=== PATIENT | female | born 1950 | race Asian ===

== ENCOUNTER 2022-02-02 02:21 | Inpatient (IN) | payer MEDICARE, OTHER ==
[~2022-02-02] VITALS: Ht 157.5 cm; Wt 46.7 kg
--- NOTE | 2022-02-02 03:45 | NUR ---
WELLNESS DIRECTOR NOTE ADMIT 71 YEAR OLD DANIEL FEMALE FROM [facility] ON TELE MONITORING WITH ADMITTING DIAGNOSIS COVID POSITIVE AND ON IMMUNE SUPPRESSED PERSON,HYPONATREMIA.ALERT ORIENTED X4 VERBALLY RESPONSIVE ON ROOM AIR O2:97% AMBULATORY CONTINET TO BOWEL/BLADDER,IV SITE IS ON RIGHT WRIST INTACT PATENT,SKIN IS INTACT EXCEPT LEFT FOREARM OLD AV SHUNT.SAFETY MEASURE IMPLEMENT BED IN LOW POSITION AND LOCKED,CALL LIGHT WITHIN REACH CONTINUE TO MONITOR.
[2022-02-02 04:00] VITALS: BP 169/90
[2022-02-02] MEDS ORDERED: CEFTRIAXONE 1 G in IV D5W 50 ML IV SCH (04:30)
[2022-02-02] MEDS ORDERED: METOCLOPRAMIDE HCL 10 MG/2 ML VIAL IV PRN (04:30)
[2022-02-02] MEDS ORDERED: hydrALAZINE HCL IV 20 MG VIAL IV PRN (04:30)
[2022-02-02] MEDS ORDERED: ONDANSETRON HCL/PF 4 MG/2 ML VIAL IVP PRN (04:30)
[2022-02-02] MEDS: IV NS 0.9% 1,000 ML IV PRN (04:59)
[2022-02-02] MEDS ORDERED: CEFTRIAXONE 1 G VIAL ONE (05:18)
[2022-02-02 06:39] LABS: CALCIUM, SERUM 9.1 mg/dL (8.5-10.1); CARBON DIOXIDE 28 mmol/L (21-32); CHLORIDE 94 mmol/L (98-107); CREATININE 1.3 mg/dL (0.6-1.3); GLUCOSE 114 mg/dL (74-106); POTASSIUM 3.6 mmol/L (3.5-5.1); SODIUM SERUM 131 mmol/L (136-145); UREA NITROGEN, BLOOD 22 mg/dL (7-18)
[2022-02-02 06:44] LABS: ALANINE AMINOTRANSFERASE 18 U/L (12-78); ALBUMIN 3.4 g/dL (3.4-5.0); ALKALINE PHOSPHATASE 62 U/L (46-116); ASPARTATE AMINOTRANSFERASE 16 U/L (15-37); BILIRUBIN,DIRECT 0.1 mg/dL (0.0-0.2); BILIRUBIN,TOTAL 0.4 mg/dL (0.2-1.0); MAGNESIUM 1.6 mg/dL (1.8-2.4); PHOSPHORUS 2.9 mg/dL (2.5-4.9); TOTAL PROTEIN, SERUM 6.8 g/dL (6.4-8.2)
[2022-02-02 06:50] LABS: CHOLESTEROL 143 mg/dL (<200); HDL CHOLESTEROL 61 mg/dL (40-60); LDL 71 mg/dL (0-99); THYROID STIMULATING HORMONE 2.457 uIU/mL (0.358-3.74); TRIGLYCERIDES 84 mg/dL (30-150)
[2022-02-02 07:18] LABS: CREATINE KINASE, TOTAL 67 U/L (26-192)
[2022-02-02 07:19] LABS: BASOPHILS % (AUTO) 0.3 % (0.0-2.0); EOSINOPHILS % (AUTO) 0.2 % (0.0-6.0); HEMATOCRIT 33 % (33-45); HEMOGLOBIN 10.9 g/dL (11.5-14.8); LYMPHOCYTES # (AUTO) 0.6 K/uL (0.8-4.8); LYMPHOCYTES % (AUTO) 6.9 % (20.0-44.0); MEAN CORPUSCULAR HGB CONC 34 g/dl (31.0-36.0); MEAN CORPUSCULAR VOLUME 97 fL (82-100); MONOCYTES # (AUTO) 0.6 K/uL (0.1-1.30); MONOCYTES % (AUTO) 7.2 % (2.0-12.0); NEUTROPHILS # (AUTO) 7.1 K/uL (1.8-8.9); NEUTROPHILS % (AUTO) 85.4 % (43.0-81.0); PLATELET COUNT (AUTO) 284 K/uL (150-450); RED BLOOD CELL COUNT(AUTO) 3.36 MIL/uL (4.0-5.2); WHITE BLOOD COUNT (AUTO) 8.4 K/uL (4.3-11.0)
[2022-02-02 07:30] LABS: C-REACTIVE PROTEIN < 0.2 mg/dL (0.0-0.9); FERRITIN 1577 ng/mL (8-388)
--- NOTE | 2022-02-02 07:39 | NUR ---
RN OPENING NOTE RECEIVED PATIENT A/OX 3, ON ROOM AIR WITH NO COMPLAINTS OF SOB OR PAINT COUGH NOTED. 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 PATIENT IS AMBULATORY BUT WAS REMINDED TO CALL FOR HELP WHEN GETTING UP FOR THE FIRST TIME THIS MORNING. ON CARDIAC DIET WITH RIGHT WRIST IV NOTED RUNNING NS AT 50CC/HR WITH NO SIGNS OF INFILTRATION. PATIENT IS ON AIR BORN PRECAUTION DUE TO COVID POSITIVE DIAGNOSIS. SAFETY MEASURES IN PLACE, CALL LIGHT WITHIN REACH, BED LOCKED IN THE LOWEST POSITION, BED ALARM ACTIVATED.
[2022-02-02 08:00] VITALS: BP 127/57
[2022-02-02] MEDS ORDERED: PANT40TA49 PO (09:36)
[2022-02-02] MEDS ORDERED: TRAZ-182 PO (09:36)
[2022-02-02] MEDS ORDERED: EPOE200011 SQ (09:36)
[2022-02-02] MEDS ORDERED: TACR1CAP2 PO (09:36)
[2022-02-02] MEDS ORDERED: DILT180C92 PO (09:36)
[2022-02-02] MEDS ORDERED: PRAV40TA3 PO (09:36)
[2022-02-02] MEDS ORDERED: CLON0.1T PO (09:36)
[2022-02-02] MEDS ORDERED: CALC0.253 PO (09:36)
[2022-02-02] MEDS ORDERED: CINA90TA4 PO (09:36)
[2022-02-02] MEDS ORDERED: MONT10TA22 PO (09:36)
[2022-02-02] MEDS ORDERED: CLON1PAT13 TP (09:36)
[2022-02-02] MEDS ORDERED: FOLI0.8T2 PO (09:36)
[2022-02-02] MEDS ORDERED: METH5TAB6 PO (09:36)
[2022-02-02] MEDS ORDERED: ASPI-1420 PO (09:36)
[2022-02-02] MEDS ORDERED: LINA145C PO (09:36)
[2022-02-02] MEDS ORDERED: FLUT1BLS INH (09:36)
[2022-02-02] MEDS ORDERED: CARV25TA2 PO (09:36)
[2022-02-02] MEDS ORDERED: PRED2.5T PO (09:36)
[2022-02-02] MEDS ORDERED: MYCO250C PO (09:37)
[2022-02-02] MEDS: ENOXAPARIN SODIUM 40 MG/0.4 ML DISP.SYRIN SQ SCH (10:26)
[2022-02-02] MEDS ORDERED: MYCO180T PO (10:29)
[2022-02-02] MEDS ORDERED: MAGNESIUM OXIDE 400 MG TABLET PO ONE (11:30)
[2022-02-02 12:00] VITALS: BP 151/80
--- NOTE | 2022-02-02 12:15 | NUR ---
DIE TRIMMER/MED RECON HOME MEDICATION INFORMATION UPDATED. INFO OBTAINED FROM THE PATIENT AND ( PER PATIENT REQUESTED) OFFICE OF DR. LEISA RODRÍGUEZ MD (CLAIMS CUSTOMER SERVICE REPRESENTATIVE [phone]). CN AWARE. COMMUNICATED WITH PHARMACY. SPOKE WITH SHANTAL-SON [phone] RE: MYFORTIC AND TO BRING HOME MEDICATION SUPPLY (NON-FORMULARY). SON WILL UPDATE LATER.
[2022-02-02] MEDS ORDERED: CLONIDINE HCL 0.1 MG TABLET PO PRN (15:00)
[2022-02-02] MEDS: METHIMAZOLE (5MG) 5 MG TABLET PO SCH (15:55)
[2022-02-02 16:00] VITALS: BP 170/86
--- NOTE | 2022-02-02 16:00 | NUR ---
RN NOTE PATIENTS BLOOD PRESSURE NOTED TO BE ELVEATED HOME MEDICATION WILL BE RESUMED
[2022-02-02] MEDS ORDERED: TACROLIMUS ANHYDROUS 1 MG CAPSULE PO SCH (17:00)
[2022-02-02] MEDS ORDERED: MYCOPHENOLATE SODIUM 180 MG TABLET.DR PO SCH (17:00)
[2022-02-02] MEDS: ATORVASTATIN 10 MG TABLET PO SCH (17:04)
[2022-02-02] MEDS: CARVEDILOL 12.5 MG TABLET PO SCH (17:04)
[2022-02-02] MEDS: [UNRECOGNIZED DRUG - OTHER] PO SCH (17:04)
[2022-02-02] MEDS: CALCITRIOL 0.25 MCG CAPSULE PO SCH (17:04)
[2022-02-02] MEDS: MYFORTIC PO SCH (17:04)
[2022-02-02] MEDS: TACROLIMUS PO SCH (17:04)
[2022-02-02] MEDS: MONTELUKAST SODIUM (10MG) 10 MG TABLET PO SCH (17:04)
[2022-02-02] MEDS: MYCOPHENOLIC PO SCH (17:04)
--- NOTE | 2022-02-02 18:53 | NUR ---
RN CLOSING NOTE PATIENT REMAINS ALERT ORIENTED X4 VERBALLY RESPONSIVE ON ROOM AIR O2:97% NO SOB NOT ACUTE DISTRESS NOTED,PATIENT IS ON NS IV HYDRATION 50CC/HR IV SITE IS ON RIGHT WRIST INTACT PATENT,SAFETY MEASURE IMPLEMENT BED IN LOW POSITION AND LOCKED,CALL LIGHT WITHIN REACH ENDORSE NEXT COMING SHIFT FOR CONTINUATION OF CARE.
[2022-02-02 20:00] VITALS: BP 143/67
--- NOTE | 2022-02-02 20:00 | NUR ---
TELEPHONIC NURSE CASE MANAGER NOTE PT IN BED ASLEEP, AROUSABLE. A/O X 4,. NO SOB, NO DISTRESS OR DISCOMFORT NOTED. DENIES PAIN. ON TELE SR HR 82. IVF NS @50 ML/HR INFUSING WELL, NO S/S OF INFILTRATION NOTED. PT IS AMBULATORY WITH STEADY GAIT. SIDE RIALS UP X 2 AND CALL LIGHT WITHIN REACH. VSS. CONTINUE TO MONITOR HER.
[2022-02-02] MEDS: ACETAMINOPHEN 325 MG TABLET PO PRN (21:32)
[2022-02-02] MEDS: TRAZODONE 50 MG TABLET PO SCH (21:32)
--- NOTE | 2022-02-02 23:05 | NUR ---
TRESTLE MECHANIC NOTE REPORT GIVEN TO JAMESON JOHNS FOR CONTINUE TO CARE FOR THE PT.
[2022-02-03] VITALS: BP 143/78
[2022-02-03 04:00] VITALS: BP 139/88
[2022-02-03] MEDS ORDERED: AZITHROMYCIN 250 MG TABLET PO SCH (04:30)
[2022-02-03] MEDS ORDERED: CEFTRIAXONE 1 G in IV D5W 50 ML IV SCH (05:00)
[2022-02-03 06:25] LABS: BASOPHILS % (AUTO) 0.3 % (0.0-2.0); EOSINOPHILS % (AUTO) 0.3 % (0.0-6.0); HEMATOCRIT 32 % (33-45); HEMOGLOBIN 10.7 g/dL (11.5-14.8); LYMPHOCYTES # (AUTO) 0.3 K/uL (0.8-4.8); LYMPHOCYTES % (AUTO) 5.4 % (20.0-44.0); MEAN CORPUSCULAR HGB CONC 33 g/dl (31.0-36.0); MEAN CORPUSCULAR VOLUME 98 fL (82-100); MONOCYTES # (AUTO) 1.1 K/uL (0.1-1.30); MONOCYTES % (AUTO) 16.5 % (2.0-12.0); NEUTROPHILS % (AUTO) 77.5 % (43.0-81.0); PLATELET COUNT (AUTO) 224 K/uL (150-450); WHITE BLOOD COUNT (AUTO) 6.4 K/uL (4.3-11.0)
--- NOTE | 2022-02-03 06:44 | NUR ---
RN CLOSING NOTES: PT IN BED AWAKE, A/O X 4 AND VERBALLY RESPONSIVE. BREATHING EVEN AND UNLABORED. IV ACCESS ON RT WRIST INTACT AND PATENT. NO S/S OF INFILTRATIONS. RUNNING NS@50CC/HR. NO C/O PAIN OR DISCOMFORT. NO ACUTE DISTRESS. PT IS AMBULATORY WITH STEADY GAIT. ALL DUE MEDS GIVEN PER ORDERED. ALL SAFETY MEASURES IN PLACE. SIDE RIALS UP X 2, BED IN LOWEST POSITION AND LOCKED. PLACE CALL LIGHT WITHIN REACH. WILL ENDORSE TO MORNING SHIFT NURSE.
[2022-02-03 06:50] LABS: CALCIUM, SERUM 8.9 mg/dL (8.5-10.1); CARBON DIOXIDE 26 mmol/L (21-32); CHLORIDE 99 mmol/L (98-107); CREATININE 1.1 mg/dL (0.6-1.3); GLUCOSE 109 mg/dL (74-106); MAGNESIUM 1.7 mg/dL (1.8-2.4); PHOSPHORUS 2.9 mg/dL (2.5-4.9); POTASSIUM 3.7 mmol/L (3.5-5.1); SODIUM SERUM 134 mmol/L (136-145); UREA NITROGEN, BLOOD 21 mg/dL (7-18)
[2022-02-03] MEDS ORDERED: PANTOPRAZOLE 40 MG TABLET.DR PO PRN (07:30)
--- NOTE | 2022-02-03 07:34 | NUR ---
RN OPENING NOTE RECEIVED PATIENT A/OX 3, ON ROOM AIR WITH NO COMPLAINTS OF SOB OR PAINT COUGH NOTED. 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 PATIENT IS AMBULATORY BUT WAS REMINDED TO CALL FOR HELP WHEN GETTING UP FOR THE FIRST TIME THIS MORNING. ON CARDIAC DIET WITH RIGHT WRIST IV NOTED RUNNING NS AT 50CC/HR WITH NO SIGNS OF INFILTRATION. PATIENT IS ON AIR BORN PRECAUTION DUE TO COVID POSITIVE DIAGNOSIS. SAFETY MEASURES IN PLACE, CALL LIGHT WITHIN REACH, BED LOCKED IN THE LOWEST POSITION, BED ALARM ACTIVATED.
[2022-02-03 08:00] VITALS: BP 167/81
[2022-02-03] MEDS: CINACALCET HCL 30 MG TABLET PO SCH (08:43)
[2022-02-03] MEDS: CALCITRIOL 0.25 MCG CAPSULE PO SCH ×2 (08:44→17:30)
[2022-02-03] MEDS: CARVEDILOL 12.5 MG TABLET PO SCH ×2 (08:44→17:31)
[2022-02-03] MEDS: ASPIRIN EC 81 MG TABLET.DR PO SCH (08:44)
[2022-02-03] MEDS: predniSONE 5 MG TABLET PO SCH (08:44)
[2022-02-03] MEDS: VIT B CMPLX 3/FA/VIT C/BIOTIN 1 TAB TABLET PO SCH (08:44)
[2022-02-03] MEDS: DILTIAZEM HCL CD 180 MG PO SCH (08:45)
[2022-02-03] MEDS: ENOXAPARIN SODIUM 40 MG/0.4 ML DISP.SYRIN SQ SCH (08:49)
[2022-02-03] MEDS: FLUTICASONE/VILANTEROL 1 EACH BLST.W.DEV IH SCH (08:50)
[2022-02-03] MEDS ORDERED: Medication Not On Formulary EA (Folic Acid/Vitamin B Comp W-C (Nephro-Vite Tablet) 0.8 M PO SCH (09:00)
[2022-02-03] MEDS ORDERED: Medication Not On Formulary EA (Linaclotide (Linzess) 145 MCG) PO SCH (09:00)
[2022-02-03] MEDS ORDERED: Medication Not On Formulary EA (Prednisone 2.5 MG) PO SCH (09:00)
[2022-02-03] MEDS ORDERED: CLONIDINE HCL 0.2MG/24H PTWK 1 EA PATCH TD SCH (09:00)
[2022-02-03] MEDS ORDERED: CINACALCET HCL 90 MG PO SCH (09:00)
[2022-02-03] MEDS: TACROLIMUS PO SCH ×2 (09:23→17:32)
[2022-02-03] MEDS: MYFORTIC PO SCH ×2 (09:23→17:32)
[2022-02-03] MEDS: [UNRECOGNIZED DRUG - OTHER] PO SCH ×2 (09:23→17:32)
[2022-02-03] MEDS: MYCOPHENOLIC PO SCH ×2 (09:23→17:32)
--- NOTE | 2022-02-03 12:00 | NUR ---
RN NOTE PATIENT NOTED TO HAVE TEMP OF 100.5, PRN TYLENOL REMOVED FROM OMNICELL. PATIENT IN BATHROOM. TYLENOL RETURNED TO OMNICELL.
[2022-02-03 12:15] VITALS: BP 126/66
[2022-02-03] MEDS ORDERED: MAGNESIUM OXIDE 400 MG TABLET PO ONE (12:30)
--- NOTE | 2022-02-03 12:30 | NUR ---
RN NOTE PATIENT BACK IN BED PRN TYLENOL GIVEN FOR A 100.4 TEMP
[2022-02-03] MEDS: ACETAMINOPHEN 325 MG TABLET PO PRN ×2 (12:48→22:05)
--- NOTE | 2022-02-03 15:00 | NUR ---
RN NOTE CONSENT SIGNED AND SENT OVER TO [facility] FOR BLOOD CULTURE RESULTS
[2022-02-03 16:00] VITALS: BP 101/51
[2022-02-03] MEDS: ATORVASTATIN 10 MG TABLET PO SCH (17:31)
[2022-02-03] MEDS: MONTELUKAST SODIUM (10MG) 10 MG TABLET PO SCH (17:31)
[2022-02-03] MEDS: IV NS 0.9% 1,000 ML IV PRN (17:34)
--- NOTE | 2022-02-03 18:44 | NUR ---
RN OPENING NOTE RECEIVED PATIENT A/OX 4, ON ROOM AIR WITH NO COMPLAINTS OF SOB OR PAINT COUGH NOTED. 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 PATIENT IS AMBULATORY. ON CARDIAC DIET WITH RIGHT WRIST IV NOTED RUNNING NS AT 50CC/HR WITH NO SIGNS OF INFILTRATION. PATIENT IS ON AIR BORN PRECAUTION DUE TO COVID POSITIVE DIAGNOSIS. SAFETY MEASURES IN PLACE, CALL LIGHT WITHIN REACH, BED LOCKED IN THE LOWEST POSITION, BED ALARM ACTIVATED. WILL ENDORSE TO NIGHT NURSE FOR BRINA.
[2022-02-03 20:00] VITALS: BP 112/62
--- NOTE | 2022-02-03 20:04 | NUR ---
TELE NR NOTE RECEIVED PT SLEEPING ON BED BUT EASILY AROUSABLE, PT IN RA NO SOB NOTED, NO DISTRESS OR DISCOMFORT, NO COMPLAINTS OF PAIN AT THIS TIME, ON TELEMONITORING CURRENTLY READING 69BPM, NOTED WITH LFA AV SHUNT, WITH R WRIST NS RUNNING @ 50 ML/HR INTACT AND PATENT, PT REMAINS COVID (+), ISOLATION PRECAUTION IN PLACE, CALL LIGHT WITHIN REACH, BED IN LOWEST AND LOCKED POSITION, WILL CONTINUE TO MONITOR.
--- NOTE | 2022-02-03 22:00 | NUR ---
RN NOTE NOTED PT WITH A LOW GRADE FEVER OF 99.8, TYLENOL 650 MG PO GIVEN ORDERED, WILL CONT TO MONITOR.
[2022-02-03] MEDS: TRAZODONE 50 MG TABLET PO SCH (22:06)
--- NOTE | 2022-02-03 23:00 | NUR ---
RN NOTE FEVER SUBSIDED TO 97.8, IVF INFUSING WELL, WILL CONT TO MONITOR.
[2022-02-04] VITALS: BP 84/41
--- NOTE | 2022-02-04 00:34 | NUR ---
RN NOTE NOTED PT BLOOD PRESSURE AT 84/41 MMHG, HR 59 BPM, PT SHOW NO DISTRESS OR DISCOMFORT. INFORMED RADHA DNP, RECEIVED NEW ORDERS TO GIVE NS 500 ML BOLUS. ORDER NOTED AND CARRIED OUT. WILL CONT TO MONITOR
[2022-02-04] MEDS ORDERED: IV NS 0.9% 500 ML IV ONE (01:00)
--- NOTE | 2022-02-04 01:09 | NUR ---
RN NOTE NOTED THAT THE IV SITE GOT OCCLUDED, UNABLE TO FLUSH, DC THE LINE AND SECURED THE SITE WITH 2X2 GAUZE, NO BLEEDING NOTED, INSERTED NEW IV LINE ON R HAND #[id number], RESUME NS 500 BOLUS FOR LOW BP ORDERED. NO S/SX OF INFILTRATION NOTED. PT IN NO RESPIRATORY DISTRESS OR ANY DISCOMFORT. WILL CONT TO MONITOR BP.
--- NOTE | 2022-02-04 02:05 | NUR ---
RN NOTE RECHECKED THE BP AT 114/53 WHICH WENT UP FROM PREVIOUS LOW BP. CONTINUES IV FLUID NS INFUSING AT 50 ML/HR, NO S/SX OF INFILTRATION, NO S/SX OF DISTRESS OR DISCOMFORT NOTED, NO COMPLAINTS OF CHEST PAIN, WILL CONT TO MONITOR.
[2022-02-04 04:00] VITALS: BP 125/54
--- NOTE | 2022-02-04 06:55 | NUR ---
RN CLOSING NOTE PT IN BED SLEEPING BUT EASILY AROUSABLE, HOB ELEVATED, NO SOB NOTED, NO COMPLAINTS OF PAIN, ALL DUE MEDS GIVEN, KEPT DRY AND CLEAN, CALL LIGHT WITHIN REACH, ALL NEEDS ATTENDED, BED IN LOW AND LOCKED POSITION, WILL ENDORSE TO AM SHIFT NURSE. FOR BRINA
--- NOTE | 2022-02-04 07:14 | NUR ---
RN OPENING NOTE RECEIVED PATIENT A/OX 4, ON ROOM AIR WITH NO COMPLAINTS OF SOB OR PAIN. COUGH NOTED. 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 PATIENT IS AMBULATORY. ON CARDIAC DIET WITH RIGHT WRIST IV NOTED RUNNING NS AT 50CC/HR WITH NO SIGNS OF INFILTRATION. PATIENT IS ON AIR BORN PRECAUTION DUE TO COVID POSITIVE DIAGNOSIS. SAFETY MEASURES IN PLACE, CALL LIGHT WITHIN REACH, BED LOCKED IN THE LOWEST POSITION, BED ALARM ACTIVATED. WILL ENDORSE TO NIGHT NURSE FOR BRINA.
[2022-02-04 08:00] VITALS: BP 145/61
[2022-02-04] MEDS: CARVEDILOL 12.5 MG TABLET PO SCH ×2 (09:10→17:00)
[2022-02-04] MEDS: [UNRECOGNIZED DRUG - OTHER] PO SCH ×2 (09:10→17:43)
[2022-02-04] MEDS: CINACALCET HCL 30 MG TABLET PO SCH (09:10)
[2022-02-04] MEDS: VIT B CMPLX 3/FA/VIT C/BIOTIN 1 TAB TABLET PO SCH (09:10)
[2022-02-04] MEDS: predniSONE 5 MG TABLET PO SCH ×2 (09:10→09:13)
[2022-02-04] MEDS: ENOXAPARIN SODIUM 40 MG/0.4 ML DISP.SYRIN SQ SCH (09:10)
[2022-02-04] MEDS: TACROLIMUS PO SCH ×2 (09:10→17:43)
[2022-02-04] MEDS: MYCOPHENOLIC PO SCH ×2 (09:10→17:43)
[2022-02-04] MEDS: CALCITRIOL 0.25 MCG CAPSULE PO SCH ×2 (09:10→17:43)
[2022-02-04] MEDS: MYFORTIC PO SCH ×2 (09:10→17:43)
[2022-02-04] MEDS: DILTIAZEM HCL CD 180 MG PO SCH (09:10)
[2022-02-04] MEDS: FLUTICASONE/VILANTEROL 1 EACH BLST.W.DEV IH SCH (09:11)
[2022-02-04] MEDS: ASPIRIN EC 81 MG TABLET.DR PO SCH (09:11)
[2022-02-04 10:41] LABS: CALCIUM, SERUM 8.4 mg/dL (8.5-10.1); CARBON DIOXIDE 25 mmol/L (21-32); CHLORIDE 99 mmol/L (98-107); CREATININE 1.3 mg/dL (0.6-1.3); GLUCOSE 93 mg/dL (74-106); POTASSIUM 3.7 mmol/L (3.5-5.1); SODIUM SERUM 133 mmol/L (136-145); UREA NITROGEN, BLOOD 26 mg/dL (7-18)
[2022-02-04 12:00] VITALS: BP 109/56
[2022-02-04] MEDS ORDERED: MAGNESIUM OXIDE 400 MG TABLET PO ONE (12:30)
[2022-02-04] MEDS: METHIMAZOLE (5MG) 5 MG TABLET PO SCH (15:43)
[2022-02-04 16:00] VITALS: BP 117/57
[2022-02-04] MEDS: ATORVASTATIN 10 MG TABLET PO SCH (17:43)
[2022-02-04] MEDS: MONTELUKAST SODIUM (10MG) 10 MG TABLET PO SCH (17:43)
--- NOTE | 2022-02-04 18:41 | NUR ---
RN CLOSING NOTES: PT IN BED AWAKE, A/O X 4 AND VERBALLY RESPONSIVE. BREATHING EVEN AND UNLABORED. IV ACCESS ON RT WRIST INTACT AND PATENT. NO S/S OF INFILTRATIONS. RUNNING NS@50CC/HR. NO C/O PAIN OR DISCOMFORT. NO ACUTE DISTRESS. PT IS AMBULATORY WITH STEADY GAIT. ALL DUE MEDS GIVEN ORDERED. ALL SAFETY MEASURES IN PLACE. SIDE RIALS UP X 2, BED IN LOWEST POSITION AND LOCKED. PLACE CALL LIGHT WITHIN REACH. WILL ENDORSE TO FINAL CLEANER NURSE FOR BRINA.
--- NOTE | 2022-02-04 19:10 | NUR ---
RN OPENING NOTES RECEIVED PATIENT ON BED, AWAKE, ALERT AND ORIENTED X 4. AMBULATORY. ON ROOM AIR, RESPIRATORY EVEN AND UNLABORED, NO SOB NOTED, NOT IN ACUTE DISTRESS. REMAIN AFEBRILE. NOTED WITH RIGHT WRIST IV LINE, PATENT, INTACT. FLUSHED WITH NS, NO S/S OF INFILTRATION NOTED AT SITE. RUNNING WITH NS @ 50 ML/HR. ALL SAFE MEASURE PROVIDED. BED IN LOWEST POSITION, LOCKED. BED ALARM ARMED. CALL LIGHT WITH IN REACH. CONTINUE TO MONITOR.
[2022-02-04 20:00] VITALS: BP 108/51
[2022-02-04] MEDS: TRAZODONE 50 MG TABLET PO SCH (22:05)
[2022-02-05] VITALS: BP 131/60
[2022-02-05 04:00] VITALS: BP 112/62
[2022-02-05] MEDS: IV NS 0.9% 1,000 ML IV PRN (04:59)
--- NOTE | 2022-02-05 06:54 | NUR ---
RN NOTES PATIENT REMAIN STABLE THROUGH OUT THE SHIFT. RESPIRATORY EVEN AND UNLABORED, NO SOB NOTED, NOT IN ACUTE DISTRESS. REMAIN AFEBRILE. STILL RUNNING WITH NS @ 50 ML/HR. ALL SAFETY MEASURE PROVIDED. BED IN LOWEST POSITION, LOCKED. BED ALARM ARMED. CALL LIGHT WITH IN REACH.
[2022-02-05 08:00] VITALS: BP 138/73
--- NOTE | 2022-02-05 08:00 | NUR ---
DEVELOPER AUTOMATIC NOTE PATIENT IN BED ALERT ORIENTED X3 ,ON TELE MONITOR SR WITH BBB HR 61-59, ON RA ,NO SOB NOTED AT THIS TIME,HAVING BREAKFAST, ABLE TO EAT SELF, RT WRIST HL INTACT ,ON IVF ORDERED, BED IN LOWEST AND LOCKED POSITION , CALL LIGHT WITHIN REACH, WILL CONT TO MONITOR NO SOB NOTED AT THIS TIME
[2022-02-05] MEDS: CALCITRIOL 0.25 MCG CAPSULE PO SCH ×2 (08:53→16:31)
[2022-02-05] MEDS: DILTIAZEM HCL CD 180 MG PO SCH (08:53)
[2022-02-05] MEDS: ASPIRIN EC 81 MG TABLET.DR PO SCH (08:53)
[2022-02-05] MEDS: CINACALCET HCL 30 MG TABLET PO SCH (08:53)
[2022-02-05] MEDS: predniSONE 5 MG TABLET PO SCH (08:53)
[2022-02-05] MEDS: VIT B CMPLX 3/FA/VIT C/BIOTIN 1 TAB TABLET PO SCH (08:53)
[2022-02-05] MEDS: MYCOPHENOLIC PO SCH ×2 (08:54→16:31)
[2022-02-05] MEDS: [UNRECOGNIZED DRUG - OTHER] PO SCH ×2 (08:54→16:31)
[2022-02-05] MEDS: FLUTICASONE/VILANTEROL 1 EACH BLST.W.DEV IH SCH (08:54)
[2022-02-05] MEDS: TACROLIMUS PO SCH ×2 (08:54→16:31)
[2022-02-05] MEDS: MYFORTIC PO SCH ×2 (08:54→16:31)
[2022-02-05] MEDS: CARVEDILOL 12.5 MG TABLET PO SCH ×2 (08:55→16:29)
[2022-02-05] MEDS: ENOXAPARIN SODIUM 40 MG/0.4 ML DISP.SYRIN SQ SCH (08:56)
[2022-02-05 09:34] LABS: ALBUMIN 2.9 g/dL (3.4-5.0); BILIRUBIN,TOTAL 0.2 mg/dL (0.2-1.0); CALCIUM, SERUM 7.5 mg/dL (8.5-10.1); CREATININE 1.2 mg/dL (0.6-1.3); POTASSIUM 3.7 mmol/L (3.5-5.1)
[2022-02-05] MEDS ORDERED: MAGNESIUM OXIDE 400 MG TABLET PO ONE (10:00)
--- NOTE | 2022-02-05 10:30 | NUR ---
TALENT SOLUTIONS MANAGER NOTE ROUNDS MADE, ALL NEEDS ATTENDED NOT T IN DISTRESS
[2022-02-05 12:00] VITALS: BP 138/73
--- NOTE | 2022-02-05 13:02 | NUR ---
VENEER MANUFACTURER NOTE PER DR ALMENDAREZ OK TO DISCHARGE HOME
[2022-02-05 16:00] VITALS: BP 106/57
[2022-02-05] MEDS: ATORVASTATIN 10 MG TABLET PO SCH (17:12)
[2022-02-05] MEDS: MONTELUKAST SODIUM (10MG) 10 MG TABLET PO SCH (17:12)
--- NOTE | 2022-02-05 18:37 | NUR ---
MOTION STUDY ENGINEER NOTE PER ARZOLA OK TO DISCHARGE HOME , INSTRUCTED DISCHARGE INSTRUCTION UNDERSTAND TO CONT HOME MEDS AND POSSIBLE SIDE EFFECTS AND F\U WITH PRIMARY CARE AND GERIATRIC PSYCHIATRIST, HL REMOVED, DRY DRESSING APPLIED ,NO BLEEDING NOTED, HOME MEDS GIVEN TO PATIENT AND SON FROM OUR PHARMACY ,BELONGING CHECKED BY AUGUSTIN SUMMERS , TELE REMOVED , TAKEN TO LOBBY ON W\C WITH STABLE CONDITION WITH ON AT BEDSIDE
== END 2022-02-05 18:21 | disposition home or self-care (01) | DRG 178 ==
LOC: TELE1 03:34
PROVIDERS: ADMIT Student in an Organized Health Care Education/Training Program; ATTEND Internal Medicine
DX: U07.1 COVID-19 (principal); E87.1 Hypo-osmolality and hyponatremia; Z94.0 Kidney transplant status; D84.9 Immunodeficiency, unspecified; E86.0 Dehydration; I16.0 Hypertensive urgency; I10 Essential (primary) hypertension; Z98.890 Other specified postprocedural states; Z82.49 Family history of ischemic heart disease and other diseases of the circulatory system; Z83.3 Family history of diabetes mellitus; K59.00 Constipation, unspecified; Z79.82 Long term (current) use of aspirin; Z79.899 Other long term (current) drug therapy; E86.1 Hypovolemia; D63.8 Anemia in other chronic diseases classified elsewhere; E83.42 Hypomagnesemia; R79.89 Other specified abnormal findings of blood chemistry
CPT/HCPCS: 36415; 71045-TC; 80048-TC; 80053-TC; 80061-TC; 80076-TC; 82247-TC; 82248-TC; 82550-TC; 82728-TC; 83605-TC; 83615-TC; 83735-TC; 84100-TC; 84443-TC; 85025-TC; 85378-TC; 85610-TC; 85730-TC; 86140-TC; 86803; 87040-TC; 87081-TC; 87806; G0378; J0360; J0696; J1650; J7030; J7040; J7060; J7512